=== PATIENT | female | born 1960 | race Caucasian/White ===

== ENCOUNTER 2020-05-08 19:08 | Emergency (ER) | payer BC ==
[~2020-05-08] VITALS: Ht 170.2 cm; Wt 74.8 kg
[2020-05-08 19:08] VITALS: BP_SYST 164
[~2020-05-08 19:08] MED LIST: ALPR0.25 PO; ATEN-41 PO
[2020-05-08 20:04] VITALS: BP_SYST 164
== END 2020-05-08 20:03 | disposition home or self-care (01) ==
LOC: SED 19:08
DX: S61.214A Laceration without foreign body of right ring finger without damage to nail, initial encounter (principal); I10 Essential (primary) hypertension; Z88.6 Allergy status to analgesic agent; W26.0XXA Contact with knife, initial encounter; Y93.89 Activity, other specified; Y92.89 Other specified places as the place of occurrence of the external cause; Y99.8 Other external cause status
CPT/HCPCS: 99283